=== PATIENT | female | born 1940 | race Caucasian/White ===

== ENCOUNTER 2016-10-15 19:15 | Emergency (ER) | payer MEDICARE, OTHER ==
[2016-10-15 15:53] LABS: BASOPHILS 0.3 %; BASOPHILS ABSOLUTE 0.02 10/3/uL (0.0-0.16); EOSINOPHILS 0.7 %; EOSINOPHILS ABSOLUTE 0.05 10/3/uL (0.0-0.53); ER CBC TAT 0 Hrs 10 Mins; HEMOGLOBIN 15.1 g/dL (12.0-16.0); IMMATURE GRANULOCYTES 0.3 %; IMMATURE GRANULOCYTES ABSOLUTE 0.02 10/3/uL (0.0-0.11); LYMPHOCYTES 21.6 %; LYMPHOCYTES ABSOLUTE 1.58 10/3/uL (0.67-4.30); MEAN CORPUS HGB CONC 33.6 g/dL (32.0-36.0); MEAN CORPUSCULAR HEMOGLOB 31.3 pg (26.0-34.0); MEAN CORPUSCULAR VOLUME 93.2 fL (80-100); MEAN PLATELET VOLUME 9.7 fL (9.2-13.0); MONOCYTES ABSOLUTE 0.44 10/3/uL (0.21-1.20); NEUTROPHILS 71.1 %; PLATELET COUNT 343 10/3/uL (150-400); RBC DISTRIBUTION WIDTH 14.4 % (12.0-16.0); RED CELL COUNT 4.83 10/6/uL (4.0-5.6); WHITE BLOOD CELLS 7.3 10/3/uL (4.5-10.5)
[2016-10-15 15:58] LABS: MANUAL DIFF NO %
[2016-10-15 16:06] LABS: BUN (BLOOD UREA NITROGEN) 15 MG/DL (6-23); CALCIUM, SERUM 9.3 MG/DL (8.5-10.4); CHEST PAIN PROFILE TAT 0 Hrs 23 Mins; CHLORIDE, SERUM 101 MMOL/L (96-112); CO2 (CARBON DIOXIDE) 29 MMOL/L (24-34); CREATININE 0.96 MG/DL (0.55-1.02); GFR AFRICAN AMERICAN 67 ML/MIN (>=60); GFR NON AFRICAN AMERICAN 57 ML/MIN (>=60); GLUCOSE, SERUM 104 MG/DL (60-99); SODIUM, SERUM 139 MMOL/L (135-148); TROPONIN I <0.02 NG/ML (<0.05)
[2016-10-15 16:11] LABS: INTERNATIONAL NORMAL RATI 1.1 UNITS (-); PARTIAL THROMBO TIME 26.7 SEC (22.5-37.2)
[~2016-10-15 19:15] MED LIST: ASAB PO; ATEN25 PO; ATV1 PO; CENTRUM PO; COZ50 PO; FLONASE NAS; HCTZ12.5 PO; HYDROCHLOROT12.5 MG PO; LISINOPRIL40 MG PO; MULTIPLE VIT PO; RYTHMOL150 MG PO; VITAMIN D31000 UNIT PO
[2016-12-13] MEDS ORDERED: COZAAR100 MG PO (16:12)
== END 2016-10-16 01:11 | disposition home or self-care (01) ==
LOC: ER 19:15
PROVIDERS: Emergency Medicine
DX: R00.0 Tachycardia, unspecified (principal); E86.0 Dehydration; R19.7 Diarrhea, unspecified; R11.2 Nausea with vomiting, unspecified; I48.91 Unspecified atrial fibrillation; Z88.0 Allergy status to penicillin; Z91.048 Other nonmedicinal substance allergy status; Z79.82 Long term (current) use of aspirin
CPT/HCPCS: 71020; 71275; 80048; 83735; 83880; 84484; 85025; 85379; 85610; 85730; 93005; 93225; 96361; 96374; 99285; J1940; J2930; Q9967

== ENCOUNTER 2016-12-20 08:00 | Day surgery (SDC) | payer MEDICARE, OTHER ==
--- NOTE | ~2016-12-20 | EGD ---
EGD REPORT [facility] [address] [id number] NAME: ALISHA RANGEL : 40 STATUS : [place] [facility] [place] PAT#: [id number] AGE: 76 ADM/REG DATE : 12/20/16 MR#: [id number] REPORT SERV DATE: 12/20/16 DICTATED BY: TERESSA CURRY DATE: 12/20/16 REPORT STATUS : Draft TRANSCRIBED BY: [employer] DATE: 12/20/16 [facility] Patient Name: Alisha Rangel Date of : 1940 Attending MD: TERESSA CURRY MD Procedure Date No Time: 12/20/2016 Procedure: Colonoscopy Indications: Abdominal pain in the right lower quadrant, Diverticulosis of the colon, Constipation, Rectal pain Referring MD: Paula Mcneal Medicines: as per anesthesia Complications: No immediate complications. Procedure: Pre-Anesthesia Assessment: - ASA Grade Assessment: III - A patient with severe systemic disease. After I obtained informed consent, the scope was passed under direct vision. Throughout the procedure, the patient's blood pressure, pulse, and oxygen saturations were monitored continuously. The [facility] [id number] was introduced through the anus and advanced to the cecum, identified by appendiceal orifice and ileocecal valve. The colonoscopy was performed without difficulty. The patient tolerated the procedure. The quality of the bowel preparation was adequate to identify polyps. Findings: The perianal and digital rectal examinations were normal. Many small and large-mouthed diverticula were found in the sigmoid colon, in the descending colon, in the transverse colon and in the ascending colon. Impression: - Diverticulosis in the sigmoid colon, in the descending colon, in the transverse colon and in the ascending colon. Recommendation: - Continue present medications. Procedure Code(s): --- Professional --- 06385, Colonoscopy, flexible, proximal to splenic flexure; diagnostic, with or without collection of specimen(s) by brushing or washing, with or without colon decompression (separate procedure) Diagnosis Code(s): --- Professional --- K57.30, Diverticulosis of large intestine without EGD [address]PORT [address] [place]. [address] NAME: ALISHA RANGEL : [birth year] STATUS : [place] [facility] [place] PAT#: [id number] AGE: 76 ADM/REG DATE : 12/20/16 MR#: [id number] REPORT SERV DATE: 12/20/16 DICTATED BY: TERESSA CURRY. DATE: 12/20/16 REPORT STATUS : Draft TRANSCRIBED BY: [employer] DATE: 12/20/16 perforation or abscess without bleeding R10.31, Right lower quadrant pain K59.00, Constipation, unspecified K62.89, Other specified diseases of anus and rectum CPT copyright 2013 [employer]. All rights reserved. The codes documented in this report are preliminary and upon strap folding machine operator review may be revised to meet current compliance requirements. TERESSA CURRY MD 12/20/2016 11:14 AM This report has been signed electronically. Number of Addenda: 0 Note Initiated On: 12/20/2016 10:33 AM Scope Withdrawal Time 0 hours 8 minutes 15 seconds [address] [place] [address]
[~2016-12-20 08:00] MED LIST changes: +COZAAR100 MG PO
== END 2016-12-20 23:59 | disposition home or self-care (01) ==
LOC: DMU 08:00
PROVIDERS: Internal Medicine Gastroenterology
PROC: 0DJD8ZZ Inspection of Lower Intestinal Tract, Via Natural or Artificial Opening Endoscopic (ICD-10-PCS; principal; 2016-12-20 09:30)
DX: K57.30 Diverticulosis of large intestine without perforation or abscess without bleeding (principal); R10.31 Right lower quadrant pain; K59.00 Constipation, unspecified; K62.89 Other specified diseases of anus and rectum; I48.0 Paroxysmal atrial fibrillation; I10 Essential (primary) hypertension; F41.9 Anxiety disorder, unspecified; Z88.0 Allergy status to penicillin; Z88.5 Allergy status to narcotic agent; Z91.048 Other nonmedicinal substance allergy status; Z88.8 Allergy status to other drugs, medicaments and biological substances; Z79.82 Long term (current) use of aspirin; Z79.899 Other long term (current) drug therapy; Z79.51 Long term (current) use of inhaled steroids